=== PATIENT | male | born 1990 | race African-American/Black ===

== ENCOUNTER 2022-04-16 10:43 | Emergency (ER) | payer MEDICAID ==
[~2022-04-16] VITALS: Ht 170.2 cm; Wt 143.0 kg
[2022-04-16 11:07] VITALS: BP 167/103
[2022-04-16] MEDS ORDERED: ALBU6.7H3 IH (11:12)
[2022-04-16] MEDS ORDERED: LIDOCAINE HCL 1% 20ML VIAL (Pyxis) INJ INFIL ONE (12:45)
[2022-04-16] MEDS ORDERED: LIDOCAINE HCL 1% 10 MG/ML 10ML VIAL INJ NR (13:00)
[2022-04-16] MEDS ORDERED: KETOROLAC 30MG/ML VIAL IM ONE (14:00)
[2022-04-16 15:27] LABS: CHLORIDE 107 mEq/L (98-107)
[2022-04-16] MEDS ORDERED: TERB250T88 MT (15:51)
== END 2022-04-16 16:11 | disposition home or self-care (01) ==
LOC: ER 11:33
DX: K12.2 Cellulitis and abscess of mouth (principal); J45.909 Unspecified asthma, uncomplicated; Z88.8 Allergy status to other drugs, medicaments and biological substances
CPT/HCPCS: 10060; 36415; 80053; 96372; 99283; J1885; J3490